=== PATIENT | female | born 1985 | race Hispanic/Latino ===

== ENCOUNTER → 2019-02-01 | Outpatient (CLI) | payer MEDICAID | END | disposition home or self-care (01) | LOC: SHCH 11:40 | PROVIDERS: ATTEND Internal Medicine Cardiovascular Disease | DX: I35.0 Nonrheumatic aortic (valve) stenosis (principal) | CPT/HCPCS: 93306 ==

== ENCOUNTER 2021-03-15 07:46 | Day surgery (SDC) | payer OTHER ==
[2021-03-08 14:36] LABS: BASOPHILS % (AUTO) 0.2 % (0.0-5.0); EOSINOPHILS % (AUTO) 0.7 % (0.0-8.0); HEMATOCRIT 42.3 % (36-48); LYMPHOCYTES % (AUTO) 31.3 % (21.0-51.0); MEAN CORPUSCULAR HEMOGLOBIN 28.2 pg (27.0-33.0); MEAN CORPUSCULAR HGB CONC 32.6 g/dL (32.0-36.0); MEAN CORPUSCULAR VOLUME 86.5 fL (79-99); MONOCYTES % (AUTO) 7.5 % (3.0-13.0); NEUTROPHILS % (AUTO) 60.3 % (40.0-77.0); PLATELET COUNT (AUTO) 161 K/uL (130-400); RED BLOOD CELL COUNT(AUTO) 4.89 MIL/uL (4.00-5.50); RED CELL DISTRIBUTION WIDTH 12.9 % (11.0-15.5); WHITE BLOOD COUNT (AUTO) 4.4 K/uL (4.8-10.8)
[2021-03-08 14:45] LABS: CREATININE 0.6 mg/dL (0.5-1.5); POTASSIUM 3.9 mmol/L (3.5-5.1)
[2021-03-08 14:49] LABS: INR 0.98 (0.85-1.15); PROTHROMBIN TIME 10.7 SEC (9.6-11.6)
[2021-03-12 13:54] VITALS: BP 123/77
[~2021-03-15] VITALS: Ht 152.4 cm; Wt 64.0 kg
[2021-03-15] VITALS (16 sets, daily range): BP systolic 106–135; BP diastolic 52–76
[~2021-03-15 07:46] MED LIST: 0.9% NACL 500ML IV.SOLN 500 ML IV SCH
[2021-03-15] MEDS ORDERED: LACTATED RINGERS 1000ML 1,000 ML IV ONE (08:35)
[2021-03-15] MEDS: CEFAZOLIN SODIUM 1 GM VIAL IVP SCH ×2 (08:48→12:00)
[2021-03-15] MEDS ORDERED: DEXAMETHASONE SOD PHOSPHATE 10MG/ML 1ML VIAL ONE (09:13)
[2021-03-15] MEDS ORDERED: SUCCINYLCHOLINE CHLORIDE 20 MG/ML 10 ML VIAL ONE (09:13)
[2021-03-15] MEDS ORDERED: LIDOCAINE PF 100MG/5ML (2%) SYRINGE 5ML ONE (09:14)
[2021-03-15] MEDS ORDERED: MIDAZOLAM HCL 1 MG/ML 2ML VIAL ONE (09:15)
[2021-03-15] MEDS ORDERED: ROCURONIUM 10MG/1ML SYR 10 MG/ML ML ONE (09:15)
[2021-03-15] MEDS ORDERED: ONDANSETRON 4MG INJ ONE ×2 (09:15→13:14)
[2021-03-15] MEDS ORDERED: PROPOFOL 10 MG/ML 20ML VIAL IV ONE (09:15)
[2021-03-15] MEDS ORDERED: NEOSTIGMINE 5MG/5ML SYR IV ONE (09:15)
[2021-03-15] MEDS ORDERED: GLYCOPYRROLATE 1 MG/5 ML SYRINGE ONE (09:15)
[2021-03-15] MEDS ORDERED: FENTANYL CITRATE PF 50 MCG/1 ML 2ML VIAL ONE ×2 (09:16→12:11)
[2021-03-15] MEDS ORDERED: ROPIVACAINE 0.5% 5MG/ML 30ML IJ ONE (09:24)
[2021-03-15] MEDS ORDERED: BUPIVACAINE/PF 0.5% 30ML VIAL ONE (10:11)
[2021-03-15] MEDS ORDERED: MEPERIDINE-PF 25 MG/ML SYG ONE ×2 (13:12→13:20)
[2021-03-15] MEDS ORDERED: METOCLOPRAMIDE 10 MG/2 ML VIAL ONE (13:14)
== END 2021-03-15 14:35 | disposition home or self-care (01) ==
LOC: DAH 07:46
PROVIDERS: ATTEND Surgery
DX: K43.2 Incisional hernia without obstruction or gangrene (principal); Z20.822 Contact with and (suspected) exposure to COVID-19; E66.01 Morbid (severe) obesity due to excess calories; Z98.51 Tubal ligation status; Z90.49 Acquired absence of other specified parts of digestive tract; Z98.891 History of uterine scar from previous surgery; Z68.31 Body mass index [BMI] 31.0-31.9, adult; Z85.72 Personal history of non-Hodgkin lymphomas; Z79.01 Long term (current) use of anticoagulants
CPT/HCPCS: 36415; 49560; 49568; 80048; 85025; 85610; 85730; 87635; A4215; A4216; A4221; A4222; A4223 ×2; A4663; C1781; C9803; G0168; J0330; J0690; J1100; J2001; J2175 ×2; J2250; J2405; J2704; J2710; J2795; J3010 ×2; J3490 ×2; J7120 ×2; J2765

== ENCOUNTER 2021-03-18 00:19 | Emergency (ER) | payer OTHER ==
[~2021-03-18] VITALS: Ht 149.9 cm; Wt 65.8 kg
[2021-03-18 00:27] VITALS: BP 137/95
[2021-03-18] MEDS ORDERED: ONDANSETRON 4MG INJ IVP ONE (02:00)
[2021-03-18] MEDS ORDERED: MORPHINE 4 MG SYG IVP ONE (02:00)
[2021-03-18 02:09] LABS: BILIRUBIN,TOTAL 0.2 mg/dL (0.2-1.0); CREATININE 0.9 mg/dL (0.5-1.5); POTASSIUM 3.4 mmol/L (3.5-5.1); TOTAL PROTEIN, SERUM 7.8 g/dL (6.0-8.3)
[2021-03-18 02:12] LABS: BASOPHILS % (AUTO) 0.3 % (0.0-5.0); EOSINOPHILS % (AUTO) 0.5 % (0.0-8.0); HEMATOCRIT 40.9 % (36-48); LYMPHOCYTES % (AUTO) 23.2 % (21.0-51.0); MEAN CORPUSCULAR HEMOGLOBIN 28.6 pg (27.0-33.0); MEAN CORPUSCULAR HGB CONC 33.3 g/dL (32.0-36.0); MEAN CORPUSCULAR VOLUME 86.1 fL (79-99); MONOCYTES % (AUTO) 7.8 % (3.0-13.0); PLATELET COUNT (AUTO) 161 K/uL (130-400); RED BLOOD CELL COUNT(AUTO) 4.75 MIL/uL (4.00-5.50); WHITE BLOOD COUNT (AUTO) 6.5 K/uL (4.8-10.8)
[2021-03-18 02:16] LABS: APPEARANCE,URINE Clear (CLEAR); BILIRUBIN,URINE Negative (NEGATIVE); COLOR,URINE Yellow (YELLOW); GLUCOSE, URINE (UA) Negative (NEGATIVE); KETONES,URINE Negative (NEGATIVE); LEUKOCYTE ESTERASE ,URINE Negative (NEGATIVE); NITRATE,URINE Negative (NEGATIVE); OCCULT BLOOD,URINE Negative (NEGATIVE); PH,URINE 7.5 (5.0-8.0); PROTEIN,URINE Negative (NEGATIVE); UROBILINOGEN,URINE 0.2 mg/dL (0.2-1.0)
[2021-03-18] MEDS ORDERED: IOHEXOL 350 MG/ML 100ML INFUS..BTL IV ONE (03:06)
[2021-03-18 04:49] VITALS: BP 113/74
[2021-03-18] MEDS ORDERED: TRAM50TA2 PO (04:57)
== END 2021-03-18 05:13 | disposition home or self-care (01) ==
LOC: EDH 00:19
DX: S30.1XXA Contusion of abdominal wall, initial encounter (principal); G89.18 Other acute postprocedural pain; Z85.71 Personal history of Hodgkin lymphoma; Z90.49 Acquired absence of other specified parts of digestive tract; Z98.890 Other specified postprocedural states; W10.8XXA Fall (on) (from) other stairs and steps, initial encounter; Y93.89 Activity, other specified; Y92.89 Other specified places as the place of occurrence of the external cause; Y99.8 Other external cause status
CPT/HCPCS: 36415; 74177; 80053; 81003; 85025; 96374; 96375; 99285; J2270; J2405; Q9967